=== PATIENT | female | born 1970 | race African-American/Black ===

== ENCOUNTER 2017-05-23 08:47 | Emergency (ER) | payer MEDICAID ==
[~2017-05-23] VITALS: Ht 157.5 cm; Wt 91.0 kg
[2017-05-23] MEDS ORDERED: ONDANSETRON 4MG ODT PO ONE (11:00)
[2017-05-23] MEDS ORDERED: HYDROCODONE/ACETAMINOPHEN 5/325MG TABLET PO ONE (11:00)
[2017-05-23 11:35] VITALS: BP 135/67
== END 2017-05-23 12:45 | disposition home or self-care (01) ==
LOC: ER 09:07
DX: M71.21 Synovial cyst of popliteal space [Baker], right knee (principal); M23.51 Chronic instability of knee, right knee; I10 Essential (primary) hypertension
CPT/HCPCS: 73562; 81025; 93971; 99284; L1830; Q0162

== ENCOUNTER 2017-10-25 18:27 | Emergency (ER) | payer MEDICAID ==
[~2017-10-25] VITALS: Ht 157.5 cm; Wt 102.0 kg
[2017-10-25 20:20] LABS: BASOPHILS % 0.7 % (0.0-2.0); EOSINOPHILS % 0.3 % (0.0-5.0); LYMPHOCYTES % 27.5 % (20.0-50.0); MEAN CORPUSCULAR HEMOGLOBIN 29.5 pg (28.0-32.0); MEAN CORPUSCULAR VOLUME 88.7 fL (81.0-99.0); MONOCYTES % 12.4 % (2.0-8.0); NEUTROPHILS % 59.1 % (40.0-76.0); PLATELET 268 x1000/uL (130-400); RED CELL DISTRIBUTION WIDTH 13.5 % (11.6-14.6)
[2017-10-25 20:25] LABS: CHLORIDE 103 mEq/L (98-107)
[2017-10-25 20:27] LABS: PARTIAL THROMBOPLASTIN TIME 23.8 sec (23.4-31.0); PROTHROMBIN TIME 10.7 sec (9.4-11.6)
[2017-10-25 20:29] LABS: ETHANOL BLOOD < 10 mg/dL; HCG SCREEN NEGATIVE
[2017-10-25 20:33] LABS: CREATINE KINASE 72 IU/L (26-192)
[2017-10-25 20:36] LABS: CREATINE KINASE MB FRACTION 0.6 ng/mL (0.5-3.6)
[2017-10-25 21:58] LABS: CLARITY URINE CLEAR (CLEAR); COLOR URINE YELLOW (YELLOW); KETONES URINE NEGATIVE (NEGATIVE); LEUKOCYTE ESTERASE URINE NEGATIVE (NEGATIVE); NITRITE URINE NEGATIVE (NEGATIVE); OCCULT BLOOD URINE TRACE (NEGATIVE); PROTEIN URINE NEGATIVE (NEGATIVE); SPECIFIC GRAVITY URINE 1.023 (1.005-1.030); UROBILINOGEN URINE 0.2 E.U./dL (0.2-1.0)
[2017-10-25 22:02] LABS: *AMPHETAMINES SCREEN URINE NEGATIVE (NEGATIVE); *BARBITURATES SCREEN URINE NEGATIVE (NEGATIVE); *BENZODIAZEPINES SCREEN URINE NEGATIVE (NEGATIVE)
[2017-10-25 22:03] LABS: *COCAINE SCREEN URINE NEGATIVE (NEGATIVE); CANNABINOID URINE SCREEN NEGATIVE (NEGATIVE); METHADONE URINE SCREEN NEGATIVE (NEGATIVE); OPIATES URINE SCREEN NEGATIVE (NEGATIVE); PHENCYCLIDINE URINE SCREEN NEGATIVE (NEGATIVE)
[2017-10-25] MEDS ORDERED: DOXYCYCLINE HYCLATE 100MG CAPSULE PO ONE (23:30)
[2017-10-26] VITALS: BP 128/79
== END 2017-10-26 | disposition home or self-care (01) ==
LOC: ER 18:27
DX: J18.9 Pneumonia, unspecified organism (principal); I10 Essential (primary) hypertension; Z79.899 Other long term (current) drug therapy
CPT/HCPCS: 36415; 71045; 80053; 80305; 81003; 82550; 82553; 83605; 83690; 83880; 84484; 84703; 85025; 85379; 85610; 85730; 93005; 93970; 99285; G0482